=== PATIENT | male | born 1975 ===

== ENCOUNTER 2018-02-24 12:04 | Emergency (ER) | payer SELFPAY ==
--- NOTE | 2018-02-24 13:40 | C.PDOC ---
History Of Present Illness 41 year old male presents to the ED BIBA for public alcoholic intoxication. As per EMS, patient was found sleeping outside with multiple alcohol bottles. Patient is drowsy but arousable. Denies any physical complaints. Denies any SI/HI. \ HPI: limited to due patient's intoxicated condition. Time Seen by Provider: 02/24/18 13:08 Chief Complaint (Nursing): Substance Abuse History Per: Patient, EMS History/Exam Limitations: intoxication Onset/Duration Of Symptoms: Hrs Current Symptoms Are (Timing): Still Present Suicide/Self Injury Attempted (Context): None Modifying Factor(s): Alcohol Associated Symptoms: denies: Suicidal Thoughts, Suicidal Plan Additional History Per: EMS Past Medical History Reviewed: Historical Data, Nursing Documentation, Vital Signs Vital Signs: Last Vital Signs Temp 98 F 02/24/18 12:05 Pulse 97 H 02/24/18 12:05 Resp 18 02/24/18 12:05 BP 133/93 H 02/24/18 12:05 Pulse Ox 98 02/24/18 12:05 - Medical History PMH: No Chronic Diseases Surgical History: No Surg Hx Family History: States: No Known Family Hx - Social History Hx Alcohol Use: Yes Hx Substance Use: Yes Review Of Systems Except As Marked, All Systems Reviewed And Found Negative. (limited to due patient's intoxicated condition.) Constitutional: Negative for: Fever, Chills Cardiovascular: Negative for: Chest Pain Respiratory: Negative for: Cough, Shortness of Breath Gastrointestinal: Negative for: Vomiting, Abdominal Pain, Diarrhea Physical Exam - Physical Exam Additional Physical Exam Comments: General- Non-toxic, No acute distress Head- Normocephalic, Atraumatic Eyes- Normal Inspection. Mucosa- Moist, alcohol smell on breath Chest- Symmetrical Cardiovascular: Rhythm Regular, No murmur, Normal S1, S2 Resp- no wheezing, rales, or rhonchi, Lungs CTA bilaterally Abd- Soft. Nontender. No distension. No guarding, no rebound Ext: Bilateral (atraumatic, normal color and temperature, no cyanosis or edema) DP pulses 2+ Neuro- Drowsy, but easily arousable. PE: limited to due patient's intoxicated condition. ED Course And Treatment O2 Sat by Pulse Oximetry: 98 Medical Decision Making Medical Decision Makin Patient will remain under observation. 2000 On reevaluation is alert, awake, and oriented x3. Patient is ambulatory and has steady gait. Patient is stable and ready for discharge. Disposition Counseled Patient/Family Regarding: Diagnosis, Need For Followup - Disposition Referrals: [facility] [Outside] [facility] [Outside] Disposition: HOME/ ROUTINE Disposition Time: 20:15 Condition: IMPROVED Instructions: Alcohol Abuse and Alcoholism (DC) Forms: Gen Discharge Inst Israeli, [facility] (Israeli) Print Language: YORUBA - POA Present On Arrival: None - Clinical Impression Clinical Impression: Alcohol abuse - Scribe Statement The provider has reviewed the documentation as recorded by the Scribe Sherley Molina All medical record entries made by the Scribe were at my direction and personally dictated by me. I have reviewed the chart and agree that the record accurately reflects my personal performance of the history, physical exam, medical decision making, and the department course for this patient. I have also personally directed, reviewed, and agree with the discharge instructions and disposition.
[2018-02-24 18:39] VITALS: O2SAT 98
[2018-02-24 21:21] VITALS: BP 130/84; PULSE 86; RESP 16; TEMP 98.2
== END 2018-02-24 21:24 | disposition home or self-care (01) ==
LOC: C.ER 12:04 → EDBD 12:04 → C.ER 21:24
DX: F10.129 Alcohol abuse with intoxication, unspecified (principal)